=== PATIENT | male | born 1960 | race Caucasian/White ===

== ENCOUNTER 2017-12-26 13:03 | Emergency (ER) | payer OTHER ==
[~2017-12-26] VITALS: Ht 172.7 cm; Wt 90.5 kg
[2017-12-26 13:04] VITALS: BP 135/78; PULSE 97; RESP 18; TEMP 98.9; O2SAT 95
[2017-12-26 14:10] LABS: BACTERIA, URINE RARE /hpf; BILIRUBIN, URINE NEG (NEG); BLOOD, URINE NEG (NEG); GLUCOSE,URINE NEG (NEG); KETONE, URINE NEG (NEG); NITRITE,URINE NEG (NEG); URINE COLOR YELLOW (YELLW/STRAW); URINE LEUKOCYTE ESTERASE TRACE (NEG)
[2017-12-26 15:36] LABS: BASOPHIL % 0.4 % (0.0-2.0); EOSINOPHIL # 0.1 TH/MM3 (0-0.4); EOSINOPHIL % 1.8 % (0.0-4.0); HEMATOCRIT 45.2 % (39.0-51.0); HEMOGLOBIN 15.3 GM/DL (13.0-17.0); LYMPH % 29.4 % (9.0-44.0); LYMPHOCYTE # 2.4 TH/MM3 (1.0-4.8); MEAN CELL VOLUME 89.5 FL (80.0-100.0); MEAN CORPUSCULAR HEMOGLOBIN 30.3 PG (27.0-34.0); MEAN CORPUSCULAR HGB CONC 33.9 % (32.0-36.0); MEAN PLATELET VOLUME 9.2 FL (7.0-11.0); MONO % 5.5 % (0.0-8.0); MONOCYTE # 0.4 TH/MM3 (0-0.9); NEUT % 62.9 % (16.0-70.0); PLATELET COUNT 181 TH/MM3 (150-450); RED BLOOD COUNT 5.05 MIL/MM3 (4.50-5.90); RED CELL DISTRIBUTION WIDTH 14.5 % (11.6-17.2)
[2017-12-26 15:44] LABS: INTERNATIONAL NORMALIZED RATIO 1.1 RATIO; PROTHROMBIN TIME - PATIENT 10.7 SEC (9.8-11.6)
[2017-12-26 15:52] LABS: ALBUMIN 3.5 GM/DL (3.4-5.0); AST (GOT) 26 U/L (15-37); BICARBONATE 29.2 MEQ/L (21.0-32.0); BLOOD UREA NITROGEN 17 MG/DL (7-18); CALCIUM 9.2 MG/DL (8.5-10.1); CHLORIDE 102 MEQ/L (98-107); CREATININE 1.33 MG/DL (0.60-1.30); GLOMERULAR FILTRATION RATE 55 ML/MIN (>89); GLUCOSE,RANDOM 164 MG/DL (74-106); SODIUM (NA) 139 MEQ/L (136-145)
[2017-12-26 15:53] LABS: ALT (GPT) 41 U/L (12-78)
[2017-12-26 15:55] LABS: ALKALINE PHOSPHATASE 107 U/L (45-117); TOTAL BILIRUBIN ADULT 0.4 MG/DL (0.2-1.0); TOTAL PROTEIN 6.9 GM/DL (6.4-8.2)
--- NOTE | 2017-12-26 17:58 | PD ---
HPI Chief Complaint: Abnormal Results Time Seen by Provider: 17:14 Travel History International Travel<30 days: No Contact w/Intl Traveler<30days: No Traveled to known affect area: No History of Present Illness HPI 57-year-old male with a history of positive SHAKA, hypothyroid, presents emergency department at the request of his physician for elevated total CK. States his labs were done December 18 and his physician called recommend he go to the emergency department immediately. Patient states that he has had general malaise, diffuse musculoskeletal pain, and multiple joint pains for approximately 2-3 months. States he was working in the yard the day prior to obtaining these labs admits not drinking enough water. States that he has had urinary trouble and says his stream is slow as well for a couple of months.. Denies dysuria. Says he recently had an increase in his Crestor from 20 to 40mg. He denies fever, chest pain, shortness breath, abdominal pain, back pain. PFSH Past Medical History Cardiovascular Problems: Yes (HTN, cholesterol) Social History Tobacco Use: No Allergies-Medications (Allergen,Severity, Reaction): Coded Allergies: No Known Allergies (Unverified , 12/26/17) Reported Meds & Prescriptions Reported Meds & Active Scripts Active Reported Levothyroxine (Levothyroxine Sodium) 125 Mcg Tab 125 Mcg PO DAILY Lisinopril 20 Mg Tab 20 Mg PO DAILY Allopurinol 300 Mg Tab 300 Mg PO DAILY Centrum Silver Adult 50+ (Multiple Vitamins W/ Minerals) 0.4 Mg-300 Mcg-250 Mcg Tab Claritin (Loratadine) 10 Mg Cap 10 Mg PO DAILY Pantoprazole (Pantoprazole Sodium) 40 Mg Tab 40 Mg PO DAILY Rosuvastatin (Rosuvastatin Calcium) 20 Mg Tab 20 Mg PO DAILY Cvabh-0-Kkef Ethyl Esters 1 Gm Cap 4 Gm PO DAILY Review of Systems Except as stated in HPI: all other systems reviewed are Neg Physical Exam Narrative GENERAL: Well developed, well-nourished, no apparent distress SKIN: Focused skin assessment warm/dry. HEAD: Atraumatic. Normocephalic. EYES: Pupils equal and round. No scleral icterus. No injection or drainage. ENT: No nasal bleeding or discharge. Mucous membranes pink and moist. NECK: Trachea midline. No JVD. CARDIOVASCULAR: Regular rate and rhythm. No murmur appreciated. RESPIRATORY: No accessory muscle use. Clear to auscultation. Breath sounds equal bilaterally. GASTROINTESTINAL: Abdomen soft, non-tender, nondistended. Hepatic and splenic margins not palpable. No CVA tenderness. No obvious joint edema. MUSCULOSKELETAL: No obvious deformities. No clubbing. No cyanosis. No edema, no erythema. Homans sign negative bilaterally NEUROLOGICAL: Awake and alert. No obvious cranial nerve deficits. Motor grossly within normal limits. Normal speech. PSYCHIATRIC: Appropriate mood and affect; insight and judgment normal. Data Data Last Documented VS Vital Signs Date Time Temp Pulse Resp B/P (MAP) Pulse Ox O2 Delivery O2 Flow Rate FiO2 12/26/17 19:04 80 18 115/73 (87) 96 Room Air 12/26/17 18:11 97.7 Orders Orders Complete Blood Count With Diff (12/26/17 13:11) Comprehensive Metabolic Panel (12/26/17 13:11) Lipase (12/26/17 13:11) Prothrombin Time / Inr (Pt) (12/26/17 13:11) Act Partial Throm Time (Ptt) (12/26/17 13:11) Creatine Kinase (Cpk) (12/26/17 13:11) Urinalysis - C+S If Indicated (12/26/17 13:11) CKMB (12/26/17 15:15) CKMB% (12/26/17 15:15) Electrocardiogram (12/26/17 17:47) Troponin I (12/26/17 17:47) Ecg Monitoring (12/26/17 17:47) Bilateral Bp Monitoring (12/26/17 17:47) Iv Access Insert/Monitor (12/26/17 17:47) Oximetry (12/26/17 17:47) Oxygen Administration (12/26/17 17:47) Bladder Scan PRN (12/26/17 17:47) Sodium Chlor 0.9% 1000 Ml Inj (Ns 1000 M (12/26/17 19:30) Ed Discharge Order (12/26/17 20:45) Labs Laboratory Tests Test 12/26/17 13:19 12/26/17 15:15 12/26/17 18:32 Urine Color YELLOW Urine Turbidity CLEAR Urine pH 6.0 Urine Specific [place] 1.008 Urine Protein NEG mg/dL Urine Glucose (UA) NEG mg/dL Urine Ketones NEG mg/dL Urine Occult Blood NEG Urine Nitrite NEG Urine Bilirubin NEG Urine Urobilinogen LESS THAN 2.0 MG/DL Urine Leukocyte Esterase TRACE Urine RBC 1 /hpf Urine WBC 1 /hpf Urine Bacteria RARE /hpf Microscopic Urinalysis Comment CULT NOT INDICATED White Blood Count 8.0 TH/MM3 Red Blood Count 5.05 MIL/MM3 Hemoglobin 15.3 GM/DL Hematocrit 45.2 % Mean Corpuscular Volume 89.5 FL Mean Corpuscular Hemoglobin 30.3 PG Mean Corpuscular Hemoglobin Concent 33.9 % Red Cell Distribution Width 14.5 % Platelet Count 181 TH/MM3 Mean Platelet Volume 9.2 FL Neutrophils (%) (Auto) 62.9 % Lymphocytes (%) (Auto) 29.4 % Monocytes (%) (Auto) 5.5 % Eosinophils (%) (Auto) 1.8 % Basophils (%) (Auto) 0.4 % Neutrophils # (Auto) 5.0 TH/MM3 Lymphocytes # (Auto) 2.4 TH/MM3 Monocytes # (Auto) 0.4 TH/MM3 Eosinophils # (Auto) 0.1 TH/MM3 Basophils # (Auto) 0.0 TH/MM3 CBC Comment DIFF FINAL Differential Comment Prothrombin Time 10.7 SEC Prothromb Time International Ratio 1.1 RATIO Activated Partial Thromboplast Time 29.6 SEC Blood Urea Nitrogen 17 MG/DL Creatinine 1.33 MG/DL Random Glucose 164 MG/DL Total Protein 6.9 GM/DL Albumin 3.5 GM/DL Calcium Level 9.2 MG/DL Alkaline Phosphatase 107 U/L Aspartate Amino Transf (AST/SGOT) 26 U/L Alanine Aminotransferase (ALT/SGPT) 41 U/L Total Bilirubin 0.4 MG/DL Sodium Level 139 MEQ/L Potassium Level 4.0 MEQ/L Chloride Level 102 MEQ/L Carbon Dioxide Level 29.2 MEQ/L Anion Gap 8 MEQ/L Estimat Glomerular Filtration Rate 55 ML/MIN Total Creatine Kinase 402 U/L Creatine Kinase MB 7.0 NG/ML Creatine Kinase MB % 1.7 % Lipase 251 U/L Troponin I LESS THAN 0.02 NG/ML MDM Medical Decision Making Medical Screen Exam Complete: Yes Emergency Medical Condition: Yes Differential Diagnosis Rhabdomyolysis, dehydration, acute kidney injury, elevated CK, connective tissue disorder Narrative Course 57-year-old male with a history of positive SHAKA, hypothyroid, presents emergency department at the request of his physician for elevated total CK. States his labs were done December 18 and his physician called recommend he go to the emergency department immediately. Patient states that he has had general malaise, diffuse musculoskeletal pain, and multiple joint pains for approximately 2-3 months. States he was working in the yard the day prior to obtaining these labs admits not drinking enough water. States that he has had urinary trouble and says his stream is slow as well for a couple of months.. Denies dysuria. Says he recently had an increase in his Crestor from 20 to 40mg. He denies fever, chest pain, shortness breath, abdominal pain, back pain. Vital signs stable. EKG sinus rhythm without STEMI changes. CBC & BMP Diagram 12/26/17 15:15 Total Protein 6.9, Albumin 3.5, Calcium Level 9.2, Alkaline Phosphatase 107, Aspartate Amino Transf (AST/SGOT) 26, Alanine Aminotransferase (ALT/SGPT) 41, Total Bilirubin 0.4 CK 402, CK% 1.7. Troponin negative. No proteinuria, glycosuria. 1L NS IVF bolus. I explained the importance of follow up with his PCP. I answered all questions in depth and explained that it is most appropriate to follow up with his PCP for further eval and treatment. Consider urology for 'low stream urination' and rheumatology for positive SHAKA. Pt advised to follow up with her PCP within 2-3 days. Consider repeat labs with his PCP. Diagnosis Primary Impression: Elevated CK Referrals: [facility] Departure Forms: Tests/Procedures, Work Release Enter return to work date: Dec 28, 2017 Additional Instructions: Follow up with your primary care physician within 2-3 days. Continue to hydrate. Ensure proper nutrition. Consider follow up with a urologist to evaluate for slow urinary stream. Please give patient copy of lab work today. Disposition: 01 DISCHARGE HOME Condition: Stable Sandra Mendez Dec 26, 2017 17:58
[2017-12-26 18:11] VITALS: BP 117/73; PULSE 81; RESP 17; TEMP 97.7; O2SAT 95
[2017-12-26 18:19] VITALS: BP_SYST 116; BP_SYST 117; BP_DIAS 73; BP_DIAS 75; PULSE 82; O2SAT 96
[2017-12-26] MEDS ORDERED: ALLO300T2 PO (18:54)
[2017-12-26] MEDS ORDERED: LISI-515 PO (18:54)
[2017-12-26] MEDS ORDERED: ROSU1TAB8 PO (18:54)
[2017-12-26] MEDS ORDERED: CLAR10CA3 PO (18:54)
[2017-12-26] MEDS ORDERED: LEVO125T4 PO (18:54)
[2017-12-26] MEDS ORDERED: MULT1TAB (18:54)
[2017-12-26] MEDS ORDERED: PANT40TA3 PO (18:54)
[2017-12-26] MEDS ORDERED: OMEG1CAP28 PO (18:54)
[2017-12-26 19:04] VITALS: BP 115/73; PULSE 80; RESP 18; O2SAT 96
[2017-12-26] MEDS ORDERED: SODIUM CHLOR 0.9% 1000 ML INJ 1,000 ML IV ONE (19:30)
--- NOTE | 2017-12-27 08:09 | EKG ---
Date Performed: 12/26/2017 Time Performed: 19:03:59 PTAGE: 57 years EKG: Sinus rhythm POSSIBLE RIGHT VENTRICULAR CONDUCTION DELAY BORDERLINE ECG NO PREVIOUS TRACING DOCTOR: Renato aGy Interpretating Date/Time 12/27/2017 08:07:50
== END 2017-12-26 22:40 | disposition home or self-care (01) ==
LOC: NEPC 13:03
DX: R74.8 Abnormal levels of other serum enzymes (principal); E03.9 Hypothyroidism, unspecified; I10 Essential (primary) hypertension; R53.81 Other malaise; Z79.899 Other long term (current) drug therapy
CPT/HCPCS: 51798; 80053; 81001; 82550; 82552; 83690; 84484; 85025; 85610; 85730; 93005; 96360; 99284; J7030